=== PATIENT | male | born 2000 | race African-American/Black ===

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

== ENCOUNTER 2023-07-02 14:33 | Outpatient (CLI) | payer OTHER ==
--- NOTE | 2023-07-02 16:28 | MRI Report ---
PROCEDURE: Knee LT WO INDICATIONS: LEFT KNEE PAIN Additional information: Per imaging order, 23-year-old male with chronic left knee pain status post l eft knee posterior cruciate ligament reconstruction. TECHNIQUE: Noncontrast sagittal PD fast spin echo and T2 fast spin echo with fat saturation, sagittal 3-D spoile d GE with fat saturation; coronal T1 spin echo and PD fast spin echo with fat saturation, and axial P D fast spin echo with fat saturation through the knee. COMPARISON: Left knee MR 11/10/2019 FINDINGS: Image quality: Excellent. Anterior cruciate ligament: Intact. Posterior cruciate ligament: Postsurgical changes from posterior cruciate ligament reconstruction. T he posterior cruciate ligament graft is intact. There is expected positioning of the osseous tunnels. Medial collateral ligament: Intact. Lateral collateral ligament: Postsurgical changes from anterior cruciate ligament reconstruction wit h an intact surgical construct and intact anchors in the lateral femoral condyle and fibular head. Medial meniscus: Intact. Lateral meniscus: Intact. Medial and lateral tendons: The semimembranosus tendon insertions appear intact. Visualized portion s of the pes anserinus tendons appear normal. The popliteus tendon appears intact. Iliotibial band appears normal. Anterior structures: The patellar tendon and the distal quadriceps tendon appear intact. No patellar subluxation. No femoral trochlear dysplasia or ventral trochlear prominence. Mild scarring in the i nfrapatellar fat pad. Bones: No acute trabecular bone injury or fracture. Medial femorotibial cartilage: Intact. Lateral femorotibial cartilage: Intact. Patellofemoral cartilage: Intact. Soft tissues: There is a physiologic amount of joint fluid. There is no medial popliteal cyst. The musculature surrounding the knee is normal in bulk. IMPRESSION: 1.Postsurgical changes are seen from posterior cruciate ligament and lateral collateral ligament deo nstructions with intact ligament grafts. No arthrofibrosis. 2.No acute trabecular bone injury. No meniscal tear or focal cartilage defect. Anterior cruciate liga ment and medial collateral ligament are intact. Reviewed by: Juan Pablo Blum MD on 07/02/2023 4:27 PM PDT Approved by: Juan Pablo Blum MD on 07/02/2023 4:27 PM PDT Station ID: [id number]
== END 2023-07-02 14:34 | disposition home or self-care (01) ==
LOC: DI 14:33
PROVIDERS: ATTEND Orthopaedic Surgery
DX: M25.562 Pain in left knee (principal)